=== PATIENT | female | born 1975 | race Caucasian/White ===

== ENCOUNTER 2016-06-17 02:36 | Emergency (ER) | payer OTHER ==
[2016-06-17 02:44] VITALS: TEMP 97.4
--- NOTE | 2016-06-17 03:04 | ED ---
General Adult HPI - General Chief complaint: Upper Respiratory Infection Stated complaint: SOB, cough, nvd, ent Time Seen by Provider: 06/17/16 02:47 Source: patient, family, RN notes reviewed Mode of arrival: ambulatory Limitations: no limitations - History of Present Illness Initial comments: This is a 40-year-old female who presents with cough, congestion, headache, sore throat and nausea/vomiting/diarrhea 5 days. Patient states the nausea/ vomiting has only occurred intermittently throughout the week and mostly in the mornings. Patient states she has diarrhea after meals x3-4days. Patient states she has been feeling warm but has no documented fever. Patient also admits to some drainage from the left eye that started about 3 days ago. Patient denies any foreign body sensation or pain to the left eye. Patient states she did have drainage from the right eye and has now switched to the left eye. Patient denies any recent travel or recent antibiotics. Patient is able to keep fluids down and eating. Patient did not get a flu shot. Patient admits to tobacco use. Patient also complains of otalgia. Patient denies any recent fever, chills, shortness breath, chest pain, abdominal pain, back pain, numbness, tingling, hematuria, or visual changes, or any other complaints. - Related Data Home Medications Medication Instructions Recorded Confirmed Baclofen 10 mg PO TID 06/17/16 06/17/16 Famotidine [Pepcid] 20 mg PO DAILY 06/17/16 06/17/16 Gabapentin [Neurontin] 100 mg PO TID 06/17/16 06/17/16 Hydrocodone/Acetaminophen [[place] 1 tab PO Q6H PRN 06/17/16 06/17/16 10-325] Previous Rx's Medication Instructions Recorded Benzonatate [Tessalon Perles] 100 mg PO TID 7 Days 06/17/16 Erythromycin Ophth Oint [Romycin 1 applic LEFT EYE QID 7 Days 06/17/16 Ophth Oint] Lidocaine Viscous [Xylocaine 1 ml MUCOUS MEM Q3H 3 Days 06/17/16 Viscous 2%] Allergies Allergy/AdvReac Type Severity Reaction Status Date / Time codeine Allergy Unknown Verified 06/17/16 02:44 morphine Allergy Unknown Verified 06/17/16 02:44 Penicillins Allergy Unknown Verified 06/17/16 02:44 Review of Systems ROS Statement: Those systems with pertinent positive or pertinent negative responses have been documented in the HPI. ROS Other: All systems not noted in ROS Statement are negative. Past Medical History Past Medical History: Asthma Additional Past Medical History / Comment(s): headaches; Back pain History of Any Multi-Drug Resistant Organisms: None Reported Past Surgical History: Cholecystectomy, Hysterectomy, Orthopedic Surgery Additional Past Surgical History / Comment(s): shoulder Past Psychological History: No Psychological Hx Reported Smoking Status: Current every day smoker Past Alcohol Use History: None Reported Past Drug Use History: None Reported General Exam - General Exam Comments Initial Comments: General: The patient is awake and alert, in no distress, and does not appear acutely ill. Eye: There is mild conjunctival injection to the left eye, normal conjunctivae on the right side. Mild watery drainage from the left eye. Pupils are equal, round and reactive to light, extra-ocular movements are intact. No nystagmus. No signs of icterus. Tonometry showed normal pressure in the eye at 15 mmHg. Ears: TMs pink and pearly with intact cone of light bilaterally. Normal external ear canals Nose: Nasal turbinates are erythematous and edematous. Mouth and throat: There is erythema of the posterior pharynx. There are moist mucous membranes and no oral lesions. Neck: The neck is supple, there is no tenderness or JVD. Cardiovascular: There is a regular rate and rhythm. No murmur, rub or gallop is appreciated. Respiratory: Lungs are clear to auscultation, respirations are non-labored, breath sounds are equal. No wheezes, stridor, rales, or rhonchi. Gastrointestinal: Soft, non-distended, non-tender abdomen without masses or organomegaly noted. There is no rebound or guarding present. Bowel sounds are unremarkable. Musculoskeletal: Normal ROM, no tenderness. Strength 5/5. Sensation intact. Radial pulses equal bilaterally 2+. Neurological: A&O x 3. CN II-XII intact, There are no obvious motor or sensory deficits. Coordination appears grossly intact. Speech is normal. Skin: Skin is warm and dry and no rashes or lesions are noted. Psychiatric: Cooperative, appropriate mood & affect, normal judgment. Limitations: no limitations Course Vital Signs 06/17/16 02:41 Temperature 97.4 F L Pulse Rate 94 Respiratory 18 Rate Blood Pressure 152/89 O2 Sat by Pulse 96 Oximetry Procedures - Procedures Initial comment: Proparacaine was applied to the patient's eye and fluorescein stain after this. Left eye was viewed under the Wood's lamp and no corneal abrasion was noted. No foreign body is noted with inspection or with eyelid inversion. Medical Decision Making - Medical Decision Making This is a 40-year-old female presents with cough, congestion, headache and sore throat, nausea/vomiting/diarrhea off and on for one week. On physical exam lungs are clear to auscultation bilaterally. Patient is afebrile in the EC. There is some mild erythema to the left eye and nasal turbinates are erythematous and edematous. Tonometry showed normal pressure in the eye at 15 mmHg. Mild erythema of the posterior pharynx. Influenza and strep were done and came back negative. A chest x-ray was done and review showing: No acute cardiopulmonary process. Reportedly Dr. Gonzalez. Proparacaine was applied to the patient's eye and fluorescein stain after this. Left eye was viewed under the Wood's lamp and no corneal abrasion was noted. No foreign body is noted with inspection or with eyelid inversion. Patient was offered Zofran ODT in the EC the patient refused. Patient was given IM Zofran. Patient was having emesis of mucus in the EC. I discussed the results with patient. Discussed the patient will be given eyedrops for conjunctivitis. I discussed that she most likely has a viral bronchitis. Patient will be given a prescription for Tessalon Perles and viscous lidocaine. I discussed the patient to continue to drink plenty of fluids. Discussed that patient should follow up with PCP in one to 2 days or return to the EC for any worsening symptoms or for any further concerns. Patient was receptive to this plan and patient will be discharged home. I discussed this case with attending physician Dr. Castrejon who agrees the plan as stated above. - Lab Data Lab Results 06/17/16 06/17/16 Range/Units 03:00 03:00 Influenza Type A RNA Not Detected (Not Detectd) Influenza Type B (PCR) Not Detected (Not Detectd) Group A Strep Rapid Negative (Negative) Disposition Clinical Impression: Conjunctivitis, Bronchitis, Diarrhea Disposition: HOME SELF-CARE Condition: Good Instructions: Conjunctivitis (ED) Additional Instructions: Please use Tessalon Perles, viscous lidocaine and eye ointment as prescribed. Please be sure to drink plenty of fluids. [id number] decongestants may help. Please follow-up with your primary care provider tomorrow or return to the EC for any worsening symptoms or for any further concerns. Prescriptions: Benzonatate [Tessalon Perles] 100 mg PO TID 7 Days Erythromycin Ophth Oint [Romycin Ophth Oint] 1 applic LEFT EYE QID 7 Days Lidocaine Viscous [Xylocaine Viscous 2%] 1 ml MUCOUS MEM Q3H 3 Days Referrals: Efraín Arroyo DO [Primary Care Provider] - 1-2 days Time of Disposition: 04:15
--- NOTE | 2016-06-17 03:22 | XR ---
EXAMINATION TYPE: XR chest 2V DATE OF EXAM: 06/17/2016 3:12 AM COMPARISON: CT chest 03/15/2014 HISTORY: Chest pain cough shortness of breath nausea vomiting and diarrhea TECHNIQUE: Frontal and lateral views of the chest are obtained. FINDINGS: There is no focal air space opacity, pleural effusion, or pneumothorax seen. Mild chronic lung changes are suggested. Previously seen tiny lung nodules in the CT scan are not demonstrated wel l in the chest radiographs. The cardiac silhouette size is within normal limits. The osseous struc tures are intact. IMPRESSION: No acute cardiopulmonary process.
[2016-06-17] MEDS ORDERED: ONDANSETRON 4 MG/2 ML VIAL IM STA (03:31)
[2016-06-17] MEDS ORDERED: PROPARACAINE 0.5% OPHTH DROPS 15 ML BTL LEFT EYE STA (03:46)
[2016-06-17] MEDS ORDERED: LIDOCAINE VISCOUS 300 MG/15 ML CUP MUCOUS MEM STA (04:14)
[2016-06-17] MEDS: LIDOCAINE VISCOUS 2% 15 ML CUP MUCOUS MEM STA ×2 (04:17→04:28)
[2016-06-17 04:27] VITALS: BP 143/78; PULSE 92; RESP 16
== END 2016-06-17 04:26 | disposition home or self-care (01) ==
LOC: EC 02:36
DX: H10.9 Unspecified conjunctivitis (principal); J40 Bronchitis, not specified as acute or chronic; R19.7 Diarrhea, unspecified; F17.200 Nicotine dependence, unspecified, uncomplicated; Z88.5 Allergy status to narcotic agent; Z88.0 Allergy status to penicillin; Z79.899 Other long term (current) drug therapy
CPT/HCPCS: 87081; 87430; 87502; 71020; 99283; 96372; J2405

== ENCOUNTER 2016-09-28 20:55 | Emergency (ER) | payer OTHER ==
[2016-09-28 21:04] VITALS: BP 134/92; PULSE 106; RESP 18; TEMP 97.5
--- NOTE | 2016-09-28 21:10 | ED ---
Female Urogenital HPI - General Chief complaint: Urogenital Stated complaint: UTI Time Seen by Provider: 09/28/16 21:05 Source: patient, RN notes reviewed Mode of arrival: ambulatory Limitations: no limitations - History of Present Illness Initial comments: 47-year-old female presents to the emergency department with a chief complaint of dysuria. Patient states that she has had increased frequency of urination however she has not had as much urine is normal. Patient states that she is having burning with urination as well as. Patient menstrual history of UTIs and states that this feels much like what she has had in the past. Patient denies any fever chills cough cold runny nose with this. Patient denies any nausea or vomiting. Patient states she was concerned due to the symptoms so she thought that she should be evaluated.Patient denies any recent fever, chills , shortness of breath, chest pain, back pain, abdominal pain, nausea vomiting, numbness or tingling, constipation or diarrhea, headaches or visual changes, or any other current symptoms. - Related Data Home Medications Medication Instructions Recorded Confirmed Baclofen 10 mg PO TID 06/17/16 06/17/16 Famotidine [Pepcid] 20 mg PO DAILY 06/17/16 06/17/16 Gabapentin [Neurontin] 100 mg PO TID 06/17/16 06/17/16 Hydrocodone/Acetaminophen [[place] 1 tab PO Q6H PRN 06/17/16 06/17/16 10-325] Previous Rx's Medication Instructions Recorded Benzonatate [Tessalon Perles] 100 mg PO TID 7 Days 06/17/16 Erythromycin Ophth Oint [Romycin 1 applic LEFT EYE QID 7 Days 06/17/16 Ophth Oint] Lidocaine Viscous 2% [Xylocaine 1 ml MUCOUS MEM Q3H 3 Days 06/17/16 Viscous] Nitrofurantoin Macrocrystal 100 mg PO BID #14 cap 09/28/16 [Macrodantin] Phenazopyridine [Pyridium] 100 mg PO TID #9 tablet 09/28/16 Allergies Allergy/AdvReac Type Severity Reaction Status Date / Time codeine Allergy Unknown Verified 09/28/16 21:02 morphine Allergy Unknown Verified 09/28/16 21:02 Penicillins Allergy Unknown Verified 09/28/16 21:02 Review of Systems ROS Statement: Those systems with pertinent positive or pertinent negative responses have been documented in the HPI. ROS Other: All systems not noted in ROS Statement are negative. Past Medical History Past Medical History: Asthma Additional Past Medical History / Comment(s): headaches; Back pain History of Any Multi-Drug Resistant Organisms: None Reported Past Surgical History: Cholecystectomy, Hysterectomy, Orthopedic Surgery Additional Past Surgical History / Comment(s): shoulder Past Psychological History: No Psychological Hx Reported Smoking Status: Current every day smoker Past Alcohol Use History: None Reported Past Drug Use History: None Reported General Exam Limitations: no limitations General appearance: alert, in no apparent distress Head exam: Present: atraumatic, normocephalic, normal inspection Neck exam: Present: normal inspection Respiratory exam: Present: normal lung sounds bilaterally. Absent: respiratory distress, wheezes, rales, rhonchi, stridor Cardiovascular Exam: Present: regular rate, normal rhythm, normal heart sounds. Absent: systolic murmur, diastolic murmur, rubs, gallop, clicks GI/Abdominal exam: Present: soft, normal bowel sounds. Absent: distended, tenderness, guarding, rebound, rigid Neurological exam: Present: alert, oriented X3 Psychiatric exam: Present: normal affect, normal mood Skin exam: Present: warm, dry, intact, normal color. Absent: rash Course Vital Signs 09/28/16 21:02 Temperature 97.5 F L Pulse Rate 106 H Respiratory 18 Rate Blood Pressure 134/92 O2 Sat by Pulse 99 Oximetry Medical Decision Making - Medical Decision Making 41-year-old female presents emergency Department chief complaint of dysuria. At this time there is suspicion for UTI. This time we will start the patient and asked. We discussed return parameters and follow-up. From patient's questions. She states she understood and she is negative plan. She will be discharged home. - Lab Data Lab Results 09/28/16 Range/Units 21:15 Urine Color Light Red Urine Appearance Turbid H (Clear) Urine pH 6.0 (5.0-8.0) Ur Specific [place] 1.022 (1.001-1.035) Urine Protein 2+ H (Negative) Urine Glucose (UA) Negative (Negative) Urine Ketones Trace H (Negative) Urine Blood Large H (Negative) Urine Nitrite Negative (Negative) Urine Bilirubin Negative (Negative) Urine Urobilinogen 2.0 (<2.0) mg/dL Ur Leukocyte Esterase Large H (Negative) Urine RBC >182 H (0-5) /hpf Urine WBC >182 H (0-5) /hpf Ur Squamous Epith Cells 39 H (0-4) /hpf Amorphous Sediment Rare H (None) /hpf Urine Bacteria Occasional H (None) /hpf Urine Mucus Few H (None) /hpf Disposition Clinical Impression: UTI (urinary tract infection) Disposition: HOME SELF-CARE Condition: Stable Instructions: Urinary Tract Infection in Women (ED) Additional Instructions: Please use medication as discussed. Please follow up with family doctor if symptoms have not improved over the next two days. Please return to the emergency room if your symptoms increase or worsen or for any other concerns. Prescriptions: Nitrofurantoin Macrocrystal [Macrodantin] 100 mg PO BID #14 cap Phenazopyridine [Pyridium] 100 mg PO TID #9 tablet Referrals: Efraín Arroyo DO [Primary Care Provider] - 1-2 days Time of Disposition: 21:48
[2016-09-28 21:43] LABS: Amorphous Sediment,Urine Rare /hpf; Appearance,Urine Turbid (Clear); Bacteria,Urine Occasional /hpf; Bilirubin,Urine Negative (Negative); Glucose,Urine (UA) Negative (Negative); Ketones,Urine Trace (Negative); Leukocyte Esterase,Urine Large (Negative); Mucus,Urine Few /hpf; Nitrite,Urine Negative (Negative); Particle Count 62480; Protein,Urine 2+ (Negative); RBC,Urine >182 /hpf (0-5); Specific Gravity,Urine 1.022 (1.001-1.035); Squamous Epithelial Cell,Urine 39 /hpf (0-4); UA Billing (MACRO vs. MICRO) MICRO; WBC,Urine >182 /hpf (0-5)
[2016-09-28] MEDS ORDERED: NITROFURANTOIN MACROCRYSTAL 50 MG CAP PO STA (21:48)
[2016-09-28] MEDS ORDERED: PHENAZOPYRIDINE 200 MG TAB PO STA (21:48)
== END 2016-09-28 21:58 | disposition home or self-care (01) ==
LOC: EC 20:55
DX: N39.0 Urinary tract infection, site not specified (principal); F17.200 Nicotine dependence, unspecified, uncomplicated; Z79.899 Other long term (current) drug therapy; Z88.5 Allergy status to narcotic agent; Z88.0 Allergy status to penicillin; Z90.49 Acquired absence of other specified parts of digestive tract; Z90.710 Acquired absence of both cervix and uterus
CPT/HCPCS: 81001; 87077; 87086; 87186; 99283

== ENCOUNTER → 2017-03-06 | Outpatient (CLI) | payer OTHER ==
--- NOTE | 2017-03-07 08:26 | MM ---
Reason for exam: screening (asymptomatic). Baseline mammogram. History: Patient is postmenopausal and has history of other cancer at age 27. Physical Findings: Nurse did not find any significant physical abnormalities on exam. MG 3D Screening Mammo W/Cad Bilateral CC and MLO view(s) were taken. There are scattered fibroglandular densities. Nodule in the low left axilla likely axillary lymph node. Small 5mm nodularity central left breast is circumscribed and a benign etiology is suspected. 6 month follow up recommended for these findings. These results were verbally communicated with the patient and result sheet given to the patient on 03/06/17. ASSESSMENT: Probably benign, BI-RAD 3 RECOMMENDATION: Follow-up diagnostic mammogram of the left breast in 6 months.
== END | disposition home or self-care (01) ==
LOC: RADMAMWWP 15:38
PROVIDERS: ATTEND Family Medicine
DX: Z12.31 Encounter for screening mammogram for malignant neoplasm of breast (principal)
CPT/HCPCS: 77063; G0202

== ENCOUNTER → 2017-05-01 | Outpatient (CLI) | payer OTHER ==
--- NOTE | 2017-05-01 16:07 | CT ---
EXAMINATION TYPE: CT chest w con DATE OF EXAM: 05/01/2017 COMPARISON: 03/15/2014 HISTORY: Follow up nodules CT DLP: 810 mGycm. Automated Exposure Control for Dose Reduction was Utilized. TECHNIQUE: CT scan of the thorax is performed following with IV Contrast, patient injected with 100 mL of Omnipaque 300. FINDINGS: LUNGS: The previously seen 4 mm pleural-based pulmonary nodule is present on series 4 image 43 and is stable in comparison to the prior and should be considered benign. Just superior to this there is a 2 mm pleural-based nodule that is also stable and should be considered benign. On series 4 image 34 t here is a 3 mm stable solid pulmonary nodule which should also be considered benign. The 2 mm pleural -based pulmonary nodule on series 4 image 31 is also stable from the prior. The other pleural-based p ulmonary nodule is no longer visualized. Retrospectively a right middle lobe pulmonary nodule on seri es 4 image 28 measuring 4 mm is stable from the prior exam. No new pulmonary nodules are identified. No pulmonary masses. No focal consolidation or pleural effusion. No pneumothorax. The tracheobronchi al tree is patent. MEDIASTINUM: There are no greater than 1 cm hilar or mediastinal lymph nodes. No pericardial effusi on is seen. OTHER: Cholecystectomy clips are noted within the right upper quadrant. Mild multilevel degenerative changes of the thoracic spine are noted. Osseous structures appear intact. IMPRESSION: Multiple subcentimeter bilateral pulmonary nodules are stable dating back to 03/15/2014 a nd should be considered benign. No adenopathy or new pulmonary nodules.
== END | disposition home or self-care (01) ==
LOC: RADCTMAIN 15:15
PROVIDERS: ATTEND Physician Assistant
DX: R91.8 Other nonspecific abnormal finding of lung field (principal)
CPT/HCPCS: 71260; Q9967

== ENCOUNTER 2017-05-03 23:08 | Emergency (ER) | payer OTHER ==
[2017-05-03 23:18] VITALS: BP 152/77; PULSE 85; RESP 18; TEMP 98.1
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
--- NOTE | 2017-05-04 00:05 | CT ---
EXAM: CT Head Without Intravenous Contrast CLINICAL HISTORY: Reason: pain TECHNIQUE: Axial computed tomography images of the head/brain without intravenous contrast. CTDI is 65.30 mGy and DLP is 1035.10 mGy-cm. This CT exam was performed using one or more of the following dose reduction techniques: automated exposure control, adjustment of the mA and/or kV according to patient size, and/or use of iterative reconstruction technique. COMPARISON: 11/04/2013 FINDINGS: Brain: Unremarkable. No hemorrhage. No significant white matter disease. No edema. Ventricles: Unremarkable. No ventriculomegaly. Bones/joints: Unremarkable. No acute fracture. Soft tissues: Unremarkable. Sinuses: There is a retention cyst or polyp noted involving the inferior aspect of the left maxillary sinus. Mastoid air cells: Unremarkable as visualized. No mastoid effusion. IMPRESSION: No acute intracranial process. Left maxillary retention cyst or polyp. EXAM: CT Cervical Spine Without Intravenous Contrast CLINICAL HISTORY: Reason: pain TECHNIQUE: Axial computed tomography images of the cervical spine without intravenous contrast. CTDI is 65.30 mGy and DLP is 1035.10 mGy-cm. This CT exam was performed using one or more of the following dose reduction techniques: automated exposure control, adjustment of the mA and/or kV according to patient size, and/or use of iterative reconstruction technique. Coronal and sagittal reformatted images were created and reviewed. COMPARISON: 11/04/13 FINDINGS: Vertebrae: Unremarkable. No acute fracture. Discs/spinal canal/neural foramina: No acute findings. No spinal canal stenosis. Soft tissues: Unremarkable. Lung apices: Unremarkable as visualized. IMPRESSION: Normal cervical spine CT.
== END 2017-05-04 00:47 | disposition home or self-care (01) ==
LOC: EC 23:08
DX: M54.2 Cervicalgia (principal); R51 Headache; F17.200 Nicotine dependence, unspecified, uncomplicated; Z79.899 Other long term (current) drug therapy; Z88.0 Allergy status to penicillin; Z88.2 Allergy status to sulfonamides; Z88.5 Allergy status to narcotic agent; V43.02XA Car driver injured in collision with other type car in nontraffic accident, initial encounter; Y92.410 Unspecified street and highway as the place of occurrence of the external cause
CPT/HCPCS: 70450; 72125; 99284

== ENCOUNTER 2018-08-24 19:52 | Emergency (ER) | payer OTHER ==
[2018-08-24 20:00] VITALS: RESP 20
[2018-08-24] MEDS ORDERED: DEXAMETHASONE SOD PHOSPHATE 10 MG/ML 1 ML VIAL IM STA (20:38)
[2018-08-24] MEDS ORDERED: KETOROLAC 30 MG/ML 1 ML VIAL IM STA (20:38)
[2018-08-24] MEDS ORDERED: diphenhydrAMINE 50 MG CAP PO STA (20:38)
--- NOTE | 2018-08-24 21:48 | ED ---
General Adult HPI - General Chief complaint: Allergic Reaction Stated complaint: Neck Swelling Time Seen by Provider: 08/24/18 20:23 Source: patient, RN notes reviewed Mode of arrival: EMS Limitations: no limitations - History of Present Illness Initial comments: 43-year-old female presents to the emergency department for a chief complaint of left-sided neck swelling 1 hour. Patient states she was eating not toes and the left lower side of her face and neck started to swell. Patient states this has never happened before. Patient denies any difficulty swallowing or breathing. Patient denies any swelling of the lips or throat. States this is only on the left side. The redness. Denies any fevers.Patient has no other complaints at this time including shortness of breath, chest pain, abdominal pain, nausea or vomiting, headache, or visual changes. - Related Data Home Medications Medication Instructions Recorded Confirmed Baclofen 10 mg PO TID 06/17/16 08/24/18 Hydrocodone/Acetaminophen [Norman 1 tab PO TID PRN 06/17/16 08/24/18 10-325] Gabapentin [Neurontin] 300 mg PO TID PRN 08/24/18 08/24/18 Ibuprofen [Motrin Ib] 400 mg PO Q6H PRN 08/24/18 08/24/18 Allergies Allergy/AdvReac Type Severity Reaction Status Date / Time codeine Allergy Unknown Verified 08/24/18 20:06 morphine Allergy Unknown Verified 08/24/18 20:06 Penicillins Allergy Unknown Verified 08/24/18 20:06 Sulfa (Sulfonamide Allergy Dyspnea Verified 08/24/18 20:06 Antibiotics) Review of Systems ROS Statement: Those systems with pertinent positive or pertinent negative responses have been documented in the HPI. ROS Other: All systems not noted in ROS Statement are negative. Past Medical History Past Medical History: Asthma Additional Past Medical History / Comment(s): headaches; Back pain History of Any Multi-Drug Resistant Organisms: ESBL Date of last positivie culture/infection: 09/28/16, not a CRE CONFIRMED BY [facility] MDRO Source:: ESBL URINE Past Surgical History: Cholecystectomy, Hysterectomy, Orthopedic Surgery Additional Past Surgical History / Comment(s): shoulder Past Psychological History: Anxiety, Bipolar, Depression Smoking Status: Current every day smoker Past Alcohol Use History: Occasional Past Drug Use History: None Reported General Exam Limitations: no limitations General appearance: alert, in no apparent distress Head exam: Present: atraumatic, normocephalic, normal inspection Eye exam: Present: normal appearance, PERRL, EOMI. Absent: scleral icterus, conjunctival injection, periorbital swelling ENT exam: Present: normal exam, normal oropharynx (Oropharynx patent, uvula midline), mucous membranes moist, TM's normal bilaterally, normal external ear exam Neck exam: Present: full ROM (Full range of motion), other (Patient does have some edema noted of the left submandibular area without significant tenderness). Absent: tenderness (No tenderness noted), meningismus, lymphadenopathy Respiratory exam: Present: normal lung sounds bilaterally. Absent: respiratory distress, wheezes, rales, rhonchi, stridor Cardiovascular Exam: Present: regular rate, normal rhythm, normal heart sounds. Absent: systolic murmur, diastolic murmur, rubs, gallop, clicks Neurological exam: Present: alert, oriented X3, CN II-XII intact Psychiatric exam: Present: normal affect, normal mood Course Vital Signs 08/24/18 19:56 Temperature 97.8 F Pulse Rate 83 Respiratory 20 Rate Blood Pressure 129/85 O2 Sat by Pulse 95 Oximetry Medical Decision Making - Medical Decision Making 43 old female with a past medical history of asthma, headaches, back pain presents to the emergency department for left submandibular swelling 1 hour. Patient states this started immediately after eating nachos. Patient denies any swelling of the lips tongue or throat. States she was concerned that there was an ALLERGIC reaction however has never had an ALLERGIC reaction to this before. Patient denies any right-sided neck swelling. On exam patient does have some edema noted of the left submandibular area. No tenderness. No erythema. No edema of the oropharynx or sublingual edema. Patient likely has a blocked salivary duct as this started immediately after eating. The patient was however given medications for ALLERGIC reaction as this is her main concern. An reevaluation patient feeling much better. States that the swelling has gone down considerably which is evident on exam. Patient was educated to eat sour candies but follow-up with primary care. Educated to return here if symptoms do not resolve or worsen. Disposition Clinical Impression: Salivary duct obstruction Disposition: HOME SELF-CARE Condition: Good Instructions (If sedation given, give patient instructions): Parotid Duct Obstruction (ED), Sialoadenitis (ED) Additional Instructions: Please take sour candies to try to increase salivation. Please follow-up with primary care ENT and 1-2 days. If symptoms worsen then you need to return here to the emergency department. Is patient prescribed a controlled substance at d/c from ED?: No Referrals: Briana Rodriguez MD [Primary Care Provider] - 1-2 days Ariel Doan MD [STAFF PHYSICIAN] - 1-2 days Time of Disposition: 21:46
[2018-08-24 22:07] VITALS: BP 119/72; PULSE 62; TEMP 98.2
== END 2018-08-24 22:07 | disposition home or self-care (01) ==
LOC: EC 19:52
DX: K11.8 Other diseases of salivary glands (principal); F17.200 Nicotine dependence, unspecified, uncomplicated; Z79.899 Other long term (current) drug therapy; Z88.0 Allergy status to penicillin; Z88.2 Allergy status to sulfonamides; Z88.5 Allergy status to narcotic agent
CPT/HCPCS: 99283; 96372 ×2; J1100; J1885

== ENCOUNTER → 2019-02-19 | Outpatient (CLI) | payer OTHER ==
--- NOTE | 2019-02-20 11:06 | MR ---
EXAMINATION TYPE: MR angio head wo con DATE OF EXAM: 02/19/2019 8:15 PM COMPARISON: NONE HISTORY: New onset headache/Lightheadedness Three-dimensional [id number] intracranial MRA was performed with multiple intensity projection im ages submitted and source data reviewed at the workstation. The vertebrobasilar system as well as intracranial portions of the internal carotid arteries and thei r major tributaries are patent. I do not see evidence for sizable aneurysm or vascular malformation. IMPRESSION: Normal study.
== END | disposition home or self-care (01) ==
LOC: RADMRIMAIN 19:32
PROVIDERS: ATTEND Family Medicine
DX: R51 Headache (principal); R42 Dizziness and giddiness
CPT/HCPCS: 70544

== ENCOUNTER → 2019-05-12 | Outpatient (CLI) | payer OTHER ==
[2019-05-12 13:39] VITALS: BP 130/85; PULSE 92; RESP 16
--- NOTE | 2019-05-12 14:21 | P.CON ---
Consult Note - . Consult date: 05/12/19 Assessment/Plan:: Pain Management Consultation 43-year-old female who presents as a new patient to the [facility] pain clinic. She was referred to us for evaluation of right-sided occipital neuralgia. This incident occurred 4 months ago, patient does not identify mechanism of injury. She states that it originated with a headache that was bilateral and symmetrical. However, she's been having residual right-sided headaches originating from the occiput and radiating into the temporal and frontal components of the head. She denies any radiation to her either ear. She denies any neck pain, radicular pain into her upper extremities or lower extremities. She has tried migraine medication that she cannot identify, but none were effective. She denies any blurred vision, tinnitus, balance disturbance, antalgic gait, nausea or vomiting in the morning. In addition to above, 13-point review of systems is also negative for chest pain, shortness of breath, changes in vision, changes in hearing, new onset weakness, abdominal pain, diarrhea, extreme fatigue, malaise, fever, skin changes, homicidal or suicidal ideation, or bowel or bladder incontinence. Vital Signs: Reviewed in EMR Gen: WDWN, AAOx3, NAD, obese HEENT: NCAT, EOMI, hearing grossly normal Pulm: resp unlabored Abd: soft, NT, CVS: Regular rate and rhythm ND Neck: supple, trachea midline ROM in flexion cervical spine: Normal ROM in extension cervical spine: Normal Cervical paraspinal muscle tenderness negative Facet loading: Negative bilateral Neuro: 5 out of 5 muscle strength upper and lower extremities, sensation intact bilaterally upper and lower extremities. Assessment: 1. Occipital neuralgia, right Plan: 1. Explanation: Diagnoses, prognoses, and multiple treatment options including but not limited to physical therapy, interventional therapies, adjuvant medical therapies, narcotic medication therapies, and surgery were discussed with the patient and all questions were answered to the patient's satisfaction. 2. Opioid agreement: Not required 3. Counseling: The patient was counseled extensively on SMOKING CESSATION, BODY MASS INDEX, EXERCISE. Specifically, the patient was instructed regarding the importance of smoking cessation, obesity, and exercise in the context of both chronic pain and overall health. 4. Procedures: We'll schedule patient for right side occipital nerve block 5. Consultations: None 6. Investigations: None 7. Medications: None 8. Disposition: Patient will follow up for procedure PQRS measures: 1-Patient's medications are documented in the chart. 2-Tobacco use is positive, counseling refused 3-Patient has not had a pneumococcal vaccine. 4-Advanced care planning discussed, patient unable to give. 5-Opioid contract not signed with the patient. 6-Pain positive, follow-up visit or procedure scheduled 7-Patient's blood pressure measured and documented, and WNL. 8-Patient's weight was measured, and body mass index ABOVE the normal limits, and counseling was done. Patient instructed to follow up with PCP. 9-Patient WAS NOT identified as an unhealthy alcohol user.
== END | disposition home or self-care (01) ==
LOC: PNWHC3 12:57
PROVIDERS: ATTEND Anesthesiology
DX: M54.81 Occipital neuralgia (principal); Z72.0 Tobacco use
CPT/HCPCS: 99211

== ENCOUNTER 2019-05-24 08:08 | Day surgery (SDC) | payer OTHER ==
[2019-05-21 10:36] VITALS: BMI 45.0
[~2019-05-24 08:08] MED LIST: BUPIVACAINE (PF) 0.5% 30 ML VIAL ONE; MIDAZOLAM 2 MG/2 ML VIAL ONE; fentaNYL (PF) 50 MCG/ML 2 ML AMP ONE; methylPREDNISolone ACETATE 40 MG/ML 1 ML VIAL ONE
[2019-05-24 08:35] VITALS: TEMP 97.6
[2019-05-24] MEDS: LACTATED RINGERS 1,000 ML IV SCH ×2 (08:48→09:00)
[2019-05-24] MEDS ORDERED: IV FLUID CONTINUATION 900 ML IV ONE (09:15)
[2019-05-24 09:32] VITALS: RESP 16
[2019-05-24 09:37] VITALS: BP 107/61; PULSE 78
--- NOTE | 2019-05-24 10:26 | P.PCN ---
Date of Procedure: 05/24/19 Procedure(s) Performed: Preoperative diagnoses= 1- Greater occipital neuralgia Postoperative diagnoses= same as preoperative diagnosis. Procedure= Right Greater occipital nerve block Anesthesia= moderate sedation with Versed 2 mg and fentanyl 50 micrograms . Estimated blood loss=minimal. Procedure indication= the patient had a history of severe chronic neck pain ,and headache, diagnosed with occipital neuralgia exam was positive for severe tenderness over the occipital nerve bilaterally, she will be a good candidate occipital nerve block, patient failed conservative management Procedure description= the patient was seen and identified in the preoperative holding area, risks and benefits and alternative of the procedure and possible complications discussed with the patient, and he agreed with the preceding, patient signed the consent, an IV was started, and vital signs were monitored and were stable throughout the procedure, patient was placed in the sitting position or table and the neck area was prepped and draped with a sterile fashion, vital signs were closely monitored during the procedure, 25-gauge needle advanced 1 inch lateral to the occipital protuberance on the right side, at the location of the right occipital nerve , then after negative aspiration for heme and CSF and there was no paresthesia during the injection, 6 ml of Robivacaine 0.5% and 40 mg of Depo-Medrol injected after negative aspiration, the needle removed, Patient tolerated the procedure well without any complication, The patient returned to supine position after the back was cleaned and a Band- Aid applied, the patient transported to recovery room in stable condition and he was monitored for 30 minutes before he was discharged home and then patient was reexamined before going home and patient was discharged in stable condition and patient will follow up with the pain clinic in a few weeks.
== END 2019-05-24 09:53 | disposition home or self-care (01) ==
LOC: ORPAIN 08:08
PROVIDERS: ATTEND Specialist
DX: G89.29 Other chronic pain (principal); M54.81 Occipital neuralgia; Z88.5 Allergy status to narcotic agent; Z88.2 Allergy status to sulfonamides
CPT/HCPCS: 64405; J2250; J1030; J3010

== ENCOUNTER → 2019-06-07 | Day surgery (SDC) | payer OTHER ==
[2019-06-04 09:18] VITALS: BMI 45.7
[~2019-06-07] MED LIST changes: +IV FLUID CONTINUATION 700 ML IV ONE; +LACTATED RINGERS 1,000 ML IV SCH; +LIDOCAINE 1% 20 ML VIAL (10MG/ML) FOR IV START INTRADERMA ONE
[2019-06-07 08:12] VITALS: RESP 18; TEMP 97.3
--- NOTE | 2019-06-07 08:41 | P.PCN ---
Date of Procedure: 06/07/19 Procedure(s) Performed: Preoperative diagnoses= 1- Right Greater occipital neuralgia Postoperative diagnoses= same as preoperative diagnosis. Procedure= Right Greater occipital nerve block. Anesthesia= moderate sedation with Versed 2 mg and fentanyl 50 micrograms . Estimated blood loss=minimal. Procedure indication= the patient had a history of severe chronic neck pain ,and headache, diagnosed with occipital neuralgia exam was positive for severe tenderness over the occipital nerve bilaterally, she will be a good candidate occipital nerve block, patient failed conservative management Procedure description= the patient was seen and identified in the preoperative holding area, risks and benefits and alternative of the procedure and possible complications discussed with the patient, and he agreed with the preceding, patient signed the consent, an IV was started, and vital signs were monitored and were stable throughout the procedure, patient was placed in the sitting position or table and the neck area was prepped and draped with a sterile fashion, vital signs were closely monitored during the procedure, 25-gauge needle advanced 1 inch lateral to the occipital protuberance on the right side, at the location of the right occipital nerve , then after negative aspiration for heme and CSF and there was no paresthesia during the injection, 6 ml of Robivacaine 0.5% and 40 mg of Depo-Medrol injected after negative aspiration, the needle removed, Patient tolerated the procedure well without any complication, The patient returned to supine position after the back was cleaned and a Band- Aid applied, the patient transported to recovery room in stable condition and he was monitored for 30 minutes before he was discharged home and then patient was reexamined before going home and patient was discharged in stable condition and patient will follow up with the pain clinic in a few weeks.
[2019-06-07 08:56] VITALS: PULSE 80
[2019-06-07 09:02] VITALS: BP 112/66
== END ==
LOC: ORPAIN 07:30
PROVIDERS: ATTEND Specialist
DX: G89.29 Other chronic pain (principal); M54.81 Occipital neuralgia; Z88.5 Allergy status to narcotic agent; Z88.2 Allergy status to sulfonamides; Z90.710 Acquired absence of both cervix and uterus
CPT/HCPCS: 64405; J2250; J1030; J3010

== ENCOUNTER → 2019-11-30 | Outpatient (CLI) | payer OTHER ==
--- NOTE | 2019-11-30 18:45 | MR ---
EXAMINATION TYPE: MR brain wo/w con DATE OF EXAM: 11/30/2019 COMPARISON: CT brain 05/03/2017 HISTORY: Migraine, occipital neuralgia right side CONTRAST: Performed utilizing 13.5 mL intravenous Gadavist gadolinium contrast. TECHNIQUE: Multiplanar, multiecho imaging on a 3.0 Agustina magnet is performed through the brain. Stud y is performed within 24 hours of arrival to the hospital. The craniovertebral junction is normal. The pituitary is normal. Optic chiasm is visualized is norm al. Portions of the orbits within the [id number] are normal Diffusion-weighted imaging is performed. No abnormal hyperintensity is present to suggest an acute i ntracranial infarct or acute ischemic change. Signal within the brain appears normal Ventricles and sulci are appropriate for the patient age. No abnormal enhancement is evident. IMPRESSIONS: 1. No acute intracranial abnormality.
== END | disposition home or self-care (01) ==
LOC: RADMRIMAIN 13:07
PROVIDERS: ATTEND Family Medicine
DX: G43.909 Migraine, unspecified, not intractable, without status migrainosus (principal); M54.81 Occipital neuralgia
CPT/HCPCS: 70553; A9585

== ENCOUNTER → 2020-09-13 | Outpatient (CLI) | payer OTHER ==
--- NOTE | 2020-09-13 11:54 | MM ---
Reason for exam: additional evaluation requested from prior study. Last mammogram was performed 3 years and 6 months ago. History: Patient is postmenopausal and has history of other cancer at age 27. Took estrogen for 9 years beginning at age 27. Physical Findings: Nurse did not find any significant physical abnormalities on exam. MG Diagnostic Mammo w CAD SAM Bilateral CC and MLO view(s) were taken. Prior study comparison: March 06, 2017, bilateral MG 3d screening mammo w/cad. There are scattered fibroglandular densities. Bilateral axillary lymph node, benign appearing. Bilateral breast calcifications scattered, benign appearing. These results were verbally communicated with the patient and result sheet given to the patient on 09/13/20. ASSESSMENT: Benign, BI-RAD 2 RECOMMENDATION: Routine screening mammogram of both breasts in 1 year. Clinical follow up for whole right breast pain.
== END | disposition home or self-care (01) ==
LOC: RADMAMWWP 08:16
PROVIDERS: ATTEND Family Medicine
DX: R92.1 Mammographic calcification found on diagnostic imaging of breast (principal); Z78.0 Asymptomatic menopausal state
CPT/HCPCS: 77066

== ENCOUNTER → 2020-09-18 | Outpatient (CLI) | payer OTHER | LOC: CPPFTMAIN 06:54 | PROVIDERS: ATTEND Family Medicine | DX: Z09 Encounter for follow-up examination after completed treatment for conditions other than malignant neoplasm (principal); Z87.09 Personal history of other diseases of the respiratory system; Z88.5 Allergy status to narcotic agent; Z88.2 Allergy status to sulfonamides; F17.200 Nicotine dependence, unspecified, uncomplicated | CPT/HCPCS: 94060; 94726; 94729 ==

== ENCOUNTER → 2020-09-20 | Outpatient (CLI) | payer OTHER ==
--- NOTE | 2020-09-20 15:48 | CT ---
EXAMINATION TYPE: CT abdomen pelvis w con DATE OF EXAM: 09/20/2020 COMPARISON: 02/11/2014 HISTORY: 45-year-old female R19.01, abdominal mass RUQ TECHNIQUE: Contiguous axial scanning of the abdomen and pelvis following administration of 100 ml Iso berlin 300 IV contrast. Delayed images through the kidneys and coronal/sagittal reconstructions perform ed. CT DLP: 2318.3 mGycm Automated exposure control for dose reduction was used. FINDINGS: Heart normal size without pericardial effusion. Lung bases clear without pleural effusion. The liver is enlarged measuring 22.4 cm. No focal liver lesion. Portal venous system is patent. No bi liary ductal dilatation. Cholecystectomy clips. The adrenal glands and pancreas appear within normal limits. Spleen mildly enlarged at 14.0 cm. Nonobstructive 6 mm right renal calculus. A couple nonobstructive calculi in the left kidney measurin g up to 4 mm. However, there is a 7 mm calcification dependent within the left renal pelvis. Symmetri c uptake and excretion of contrast from both kidneys at this time. No dilated small bowel, free fluid, or free air. No mesenteric or retroperitoneal lymphadenopathy. Oral contrast has progressed to the ascending colon. No significant stool burden. No pericolonic infl ammatory change. Bladder is nondistended. Uterus surgically absent. Pelvic phlebolith. No abnormal fluid collection in the pelvis. Right-sided inguinal lymph nodes are asymmetrically larger measuring up to 1.8 cm short axis. These are mildly enlarged, refer to coronal image 50 and 53. Bones: Mild degenerative change of the hips. Facet arthropathy lower lumbar spine. IMPRESSION: 1. HEPATOSPLENOMEGALY (LIVER 22.4 CM AND SPLEEN 14.0 CM). 2. NONOBSTRUCTIVE BILATERAL RENAL CALCULI MEASURING UP TO 6 MM. HOWEVER, THERE IS A 7 MM CALCULUS LOC ATED WITHIN THE LEFT RENAL COLLECTING SYSTEM WELL. THIS COULD POTENTIALLY PASS INTO THE URETER. 3. A COUPLE MILDLY ENLARGED RIGHT INGUINAL LYMPH NODES MEASURING UP TO 1.8 CM SHORT AXIS. FINDINGS MA Y BE REACTIVE. CLINICAL FOLLOW-UP RECOMMENDED TO ENSURE STABILITY/RESOLUTION IN ORDER TO EXCLUDE THE POSSIBILITY OF METASTATIC DISEASE. ULTRASOUND FOLLOW-UP CAN BE CONSIDERED.
== END ==
LOC: RADCTMAIN 13:00
PROVIDERS: ATTEND Family Medicine
DX: R16.2 Hepatomegaly with splenomegaly, not elsewhere classified (principal); R59.0 Localized enlarged lymph nodes; N20.0 Calculus of kidney
CPT/HCPCS: 74177; Q9967

== ENCOUNTER → 2020-10-19 | Outpatient (CLI) | payer OTHER ==
[2020-10-20 00:48] LABS: Gliadin AB IgA, Deaminated NEGATIVE (NEGATIVE); Gliadin AB IgA, Unit 1.4 U/mL; Gliadin AB IgG, Deaminated NEGATIVE (NEGATIVE)
== END | disposition home or self-care (01) ==
LOC: LABWHC1 14:14
PROVIDERS: ATTEND Nurse Practitioner
DX: K52.9 Noninfective gastroenteritis and colitis, unspecified (principal)
CPT/HCPCS: 36415; 83516

== ENCOUNTER 2020-11-09 10:18 | Day surgery (SDC) | payer OTHER ==
[~2020-11-09 10:18] MED LIST changes: -BUPIVACAINE (PF) 0.5% 30 ML VIAL ONE; -IV FLUID CONTINUATION 700 ML IV ONE; -LIDOCAINE 1% 20 ML VIAL (10MG/ML) FOR IV START INTRADERMA ONE; -MIDAZOLAM 2 MG/2 ML VIAL ONE; -fentaNYL (PF) 50 MCG/ML 2 ML AMP ONE; -methylPREDNISolone ACETATE 40 MG/ML 1 ML VIAL ONE
[2020-11-09 10:45] VITALS: TEMP 97.4
[2020-11-09] MEDS ORDERED: LIDOCAINE 1% (10MG/ML) FOR IV START INTRADERMA ONE (10:45)
[2020-11-09] MEDS ORDERED: PROPOFOL 10 MG/ML 20 ML VIAL IV ONE (11:07)
[2020-11-09 11:38] VITALS: RESP 16
--- NOTE | 2020-11-09 11:38 | P.PCN ---
Date of Procedure: 11/09/20 Description of Procedure: BRIEF HISTORY: Patient is a 45-year-old female presenting for outpatient colonoscopy for evaluation of diarrhea and change in bowel habits. She reports a remote history of colonoscopy which was having constipation at that time. She is now reporting one year of frequent loose bowel movements. PROCEDURE PERFORMED: Colonoscopy with biopsy and polypectomy. PREOPERATIVE DIAGNOSIS: Diarrhea, change in bowel habits, last colonoscopy performed remotely. ESTIMATED BLOOD LOSS: Minimal. IV sedation per Anesthesia. PROCEDURE: After informed consent was obtained, the patient, was brought into the endoscopy unit. IV sedation was administered by Anesthesia under continuous monitoring. Digital rectal examination was normal. Initially the Olympus CF-190 flexible video colonoscope was then inserted in the rectum, gradually advanced into the cecum without any difficulty. Careful examination was performed as the scope was gradually being withdrawn. Ileocecal valve and the appendiceal orifice were visualized and appeared normal. Prep was excellent. Mucosa of the cecum, ascending colon, transverse colon, descending colon, sigmoid colon, and rectum appeared normal, with biopsies of the right and left colon taken. Normal- appearing terminal ileum biopsied. Diminutive 2 mm cecal polyp removed with cold forcep polypectomy. Retroflexion was performed in the rectum and no lesions were seen, low-grade internal hemorrhoids noted. The patient tolerated the procedure well. IMPRESSION: Diminutive cecal polyp removed with cold forcep polypectomy. Otherwise, normal-appearing colon from rectum to cecum with normal-appearing terminal ileum and random biopsies taken of the terminal ileum, right and left colon. Internal hemorrhoids. RECOMMENDATIONS: Findings of this examination were discussed with the patient.. Okay to resume diet. Okay to resume medications. Await pathology from biopsies and polypectomy. Recommend repeat colonoscopy in 7 years for colon polyp any pathology from polypectomy. Otherwise continue current medical management at this time.
[2020-11-09 11:56] VITALS: BP 115/75; PULSE 66
== END 2020-11-09 12:05 | disposition home or self-care (01) ==
LOC: ORWHC2ENDO 10:18
PROVIDERS: ATTEND Internal Medicine
DX: D12.0 Benign neoplasm of cecum (principal); K64.8 Other hemorrhoids; Z90.49 Acquired absence of other specified parts of digestive tract; Z90.710 Acquired absence of both cervix and uterus; Z98.890 Other specified postprocedural states; G43.919 Migraine, unspecified, intractable, without status migrainosus; F17.200 Nicotine dependence, unspecified, uncomplicated; Z79.891 Long term (current) use of opiate analgesic; Z79.1 Long term (current) use of non-steroidal anti-inflammatories (NSAID); Z79.899 Other long term (current) drug therapy; Z88.5 Allergy status to narcotic agent; Z88.2 Allergy status to sulfonamides
CPT/HCPCS: 88305; 45380; J2704

== ENCOUNTER → 2020-12-21 | Day surgery (SDC) | payer OTHER ==
[2020-12-19 10:06] VITALS: BMI 46.2
[~2020-12-21] MED LIST changes: +DEXAMETHASONE SOD PHOSPHATE 4 MG/ML 1 ML VIAL IVP ONE; +IOPAMIDOL-370 50ML BTL IRRIGATION ONE; +LACTATED RINGERS 1,000 ML IV ONE; -LACTATED RINGERS 1,000 ML IV SCH; +LIDOCAINE 1% (10MG/ML) FOR IV START INTRADERMA ONE; +LIDOCAINE 1% INJ 10MG/ML (20 ML MDV) ONE; +MIDAZOLAM 2 MG/2 ML VIAL ONE; +ONDANSETRON 4 MG/2 ML VIAL ONE; +PHENYLEPHRINE-0.9% NACL SYG 1,000 MCG/10 ML SYRINGE ONE; +PROPOFOL 10 MG/ML 20 ML VIAL IV ONE; +SUCCINYLCHOLINE CHLORIDE 100 MG/5 ML SYR IV ONE; +ceFAZolin 3 GM in SODIUM CHLORIDE 0.9% 100 ML IVPB PRN; +fentaNYL (PF) 50 MCG/ML 2 ML AMP IVP ONE; +fentaNYL (PF) 50 MCG/ML 2 ML AMP ONE
--- NOTE | 2020-12-21 11:27 | XR ---
EXAMINATION TYPE: XR KUB DATE OF EXAM: 12/21/2020 Comparison: Correlation CT 09/20/2020 Clinical History: 45-year-old female kidney stones, DOS 12-21-20 Findings: Bowel content obscures right renal shadow. Suggestion of a 9 mm calcification left mid abdomen probab ly representing the calculus in the collecting system. Vague densities on the supine image of the upper abdomen projecting in the region of the right kidney not confirmed to represent multiple calculi on the prior CT. Small pelvic phleboliths. Nonobstructive bowel gas pattern. Moderate stool. Impression: 9 mm left mid abdominal calcification may correspond to the stone seen in the left renal collecting s ystem on prior 09/20/2020 CT.
--- NOTE | 2020-12-21 11:37 | P.HPIHPCON ---
History of Present Illness H&P Date: 12/21/20 Chief Complaint: Bilateral kidney stones This is a 45-year-old female with history of a 5 mm right-sided proximal stone, and a 9 mm left sided renal pelvis stone. She symptomatically from her stone. Discussed with her the option of doing a bilateral ureteroscopy, discussed with her the risks which includes but not limited to bleeding, infection, injury to the ureter. Discussed risk from anesthesia. She understood all the risk and agreed to proceed with bilateral ureteroscopy, with holmium laser lithotripsy, stone basketing and stent insertion Consent for Procedure: I have explained the operation/procedure to the patient, including the risks, benefits, side effects, alternative therapies (including not receiving the proposed treatment or service), the likelihood of the patient achieving his/her goals, and potential recuperation problems for the procedure/sedation/analgesia, as well as any blood products, if indicated. I also explained to the patient the risks, benefits and side effects of the alternatives, as well as the risks rel ated to not receiving the proposed procedure, care, treatment, or services. Past Medical History Past Medical History: Asthma, Musculoskeletal Disorder Additional Past Medical History / Comment(s): bilateral kidney stones,HAD COVID IN OCTOBER 2019. MIGRAINES. Back pain, freq UTI's. History of Any Multi-Drug Resistant Organisms: ESBL Date of last positivie culture/infection: 09/28/16, not a CRE CONFIRMED BY [facility] MDRO Source:: ESBL URINE Past Surgical History: Cholecystectomy, Hysterectomy, Orthopedic Surgery Additional Past Surgical History / Comment(s): Rt Shoulder surgery. Pain proc,colonoscopy Past Anesthesia/Blood Transfusion Reactions: Previous Problems w/ Anesthesia Additional Past Anesthesia/Blood Transfusion Reaction / Comment(s): BECAME VIOLENT, HITTING AT STAFF-yrs ago Smoking Status: Current every day smoker - Past Family History Mother Family Medical History: Cancer Additional Family Medical History / Comment(s): Ovarian Cancer. Medications and Allergies Home Medications Medication Instructions Recorded Confirmed Type Hydrocodone/Acetaminophen [Hammond 1 tab PO TID 06/17/16 12/19/20 History 10-325] Ibuprofen [Motrin Ib] 400 mg PO Q6H PRN 08/24/18 12/19/20 History Aspirin/Acetaminophen/Caffeine 2 each PO BID PRN 05/10/19 12/19/20 History [Sandeep's Ex-Str Powder Packet] Acetaminophen [Tylenol] 325 mg PO Q4H PRN 05/24/19 12/19/20 History Albuterol Sulfate [Proair Hfa] 1 puff INHALATION DIRECTED PRN 11/08/20 12/19/20 History Allergies Allergy/AdvReac Type Severity Reaction Status Date / Time codeine Allergy Dyspnea,abdominal Verified 12/19/20 09:40 cramping morphine Allergy Dyspnea,abdominal Verified 12/19/20 09:40 cramping Sulfa (Sulfonamide Allergy "everything Verified 12/19/20 09:40 Antibiotics) spins and almost passed out" Surgical - Exam - General well developed, well nourished, no distress - Eyes normal ocular movement, no icteric - ENT no hearing loss, no congestion - Respiratory normal respiratory effort, clear to auscultation - Psychiatric oriented to time, oriented to person, oriented to place, speech is normal, memory intact Assessment and Plan Assessment: 45-year-old female with history of a right ureteral stone, left renal stone OR for bilateral ureteroscopy, with holmium laser lithotripsy, stone basketing and stent insertion
[2020-12-21 11:59] LABS: Glucose,Whole Blood 124 mg/dL (75-99)
--- NOTE | 2020-12-21 14:30 | P.OP ---
Date of Procedure: 12/21/20 Preoperative Diagnosis: Right ureteral, left renal stone Postoperative Diagnosis: Same Procedure(s) Performed: Cystoscopy, right reterograde pyelogram, bilateral ureteroscopy, laser lithotripsy, stone basketing, and stent insertion Implants: 4.8-Lithuanian by 24 centimeters stent bilaterally Anesthesia: FABIOA Surgeon: Justo Warren Estimated Blood Loss (ml): 5 Pathology: other (bilateral kidney stones) Condition: stable Disposition: PACU Indications for Procedure: This is a 45-year-old female with history of a 5 mm right-sided proximal stone, and a 9 mm left sided renal pelvis stone. She symptomatically from her stone. Discussed with her the option of doing a bilateral ureteroscopy, discussed with her the risks which includes but not limited to bleeding, infection, injury to the ureter. Discussed risk from anesthesia. She understood all the risk and agreed to proceed with bilateral ureteroscopy, with holmium laser lithotripsy, stone basketing and stent insertion Operative Findings: Right UPJ stone, left renal pelvis stone Description of Procedure: patient was brought to the operating room, general anesthesia was induced. She was prepped and draped in sterile fashion and placed in dorsal lithotomy position. Cystoscopy fitted 21-Lithuanian sheath was inserted per urethra, cystoscopy was performed which showed no abnormality within the bladder. Attention was then carried to the right ureteral orifice was intubated with an open-ended catheter, retrograde pyelogram was performed which showed a filling defect along the proximal ureter, with mild hydronephrosis. Next a sensor wire was advanced through the catheter and into the renal pelvis, Under fluoroscopy 1113 Lithuanian access sheath was passed into the proximal ureter. Next ureteroscope was inserted through the access sheath, stone was visualized in the proximal ureter and was lasered using the holmium laser, sizable fragments were removed using stone basket. Repeat renoscopy showed no sizable stone or injury to the kidney. Pullback ureteroscopy was performed which showed no injury to the ureter or any ureteral stone. Attention was then carried to the left ureter, which was intubated with a sensor wire. Next a 1113 Lithuanian access sheath was passed under fluoroscopy into the proximal ureter. The flexibile ureteroscope was advanced through the access sheath, renoscopy was performed showed large stone within the renal pelvis. Using the holmium laser the stone was fragmented into small fragments, the fragments were removed using stone basket. Repeat renoscopy was performed which showed no injury to the kidney or any sizable fragments. Pullback ureteroscopy was performed whic showed no injury to the ureter or any ureteral fragments. Next a ureteral stent was passed over the wire on the left side, the proximal curl was visualized on fluoroscopy and distal curl was visualized using the cystoscope. Attention was then carried to the right side which was intubated with a with a sensor wire. A ureteral stent was passed over the wire, the proximal curl was visualized on fluoroscopy and distal curl was visualized using the cystoscope. The bladder was emptied at the end of the case. Patient tolerated the procedure well was taken to PACU in stable condition
[2020-12-21 14:43] VITALS: TEMP 97
--- NOTE | 2020-12-21 14:56 | FL ---
Fluoroscopy HISTORY: Lithotripsy 6 seconds fluoroscopy time supplied to the referring clinician. 1 intraoperative C-arm images docume nt the procedure. See dictated report from urology.
[2020-12-21 15:13] VITALS: RESP 20
[2020-12-21 15:30] VITALS: BP 143/92; PULSE 68
== END | disposition home or self-care (01) ==
LOC: OR 10:43
PROVIDERS: ATTEND Urology
DX: N20.0 Calculus of kidney (principal); M54.9 Dorsalgia, unspecified; G43.909 Migraine, unspecified, not intractable, without status migrainosus; F41.8 Other specified anxiety disorders; F31.9 Bipolar disorder, unspecified; J45.909 Unspecified asthma, uncomplicated; F17.200 Nicotine dependence, unspecified, uncomplicated; R73.03 Prediabetes; Z87.440 Personal history of urinary (tract) infections; Z87.442 Personal history of urinary calculi; Z86.16 Personal history of COVID-19
CPT/HCPCS: 52356; 82365; 74420; 74018; C2625; C1758; C1769; J2250; J1100; J0690; J2405; J2001; J3010; J2370; J0330; J2704; Q9967

== ENCOUNTER → 2022-04-19 | Outpatient (CLI) | payer OTHER ==
--- NOTE | 2022-04-20 06:59 | PE ---
EXAMINATION TYPE: PET CT fusion skull to thigh DATE OF EXAM: 04/19/2022 COMPARISON: Most recent CT abdomen and pelvis September 20, 2020 HISTORY: Lymphadenopathy. Enlarged lymph nodes in the coronary along with enlarged liver and spleen p er patient. Right lower quadrant pain per patient. TECHNIQUE: Following the intravenous administration of 11.07 mCi of F-18 FDG, whole body images are performed from the skull base to the midthigh. Images are reviewed on the computer in the coronal, a xial, and sagittal planes. Reconstructed rotating images are created on independent workstation and reviewed on the computer. A localization and attenuation correction CT is performed in conjunction with the PET scan. Blood glucose level equals 100. SCAN: Initial Scan FINDINGS: SKULL BASE AND NECK: Symmetric uptake in the oral cavity. No suspicious abnormal hypermetabolic upta ke. CHEST, MEDIASTINUM, AND HILAR REGION: No suspicious hypermetabolic uptake. No concerning axillary volodymyr nopathy is seen. ABDOMEN AND PELVIS: Liver appears upper limits of normal in size. Spleen normal in size. No suspiciou s hypermetabolic uptake. Normal excretion. Nonspecific bowel uptake prominent in the transverse colon . Prominent but subcentimeter lymph nodes in the groin. No abnormal hypermetabolic masses or lymph no terrie. OSSEOUS STRUCTURES: No areas of abnormal hypermetabolic uptake. OTHER CT: There is mucous retention cyst or polyp in the inferior left maxillary sinus. Cholecystectomy clips are seen. There is 1.2 cm calculus in the left renal pelvis axial image 158. Th ere is smaller 2 mm midpole calculus axial image 156. Uterus is surgically absent. IMPRESSION: No hypermetabolic adenopathy to suggest neoplasm. Liver and spleen felt normal in size. N o suspicious focal hypermetabolic uptake in liver or spleen. Note is made of 1.2 cm calculus in the l eft renal pelvis. Advise urology follow-up.
== END | disposition home or self-care (01) ==
LOC: RADPETMAIN 15:02
PROVIDERS: ATTEND Internal Medicine Hematology & Oncology
DX: N20.0 Calculus of kidney (principal); R59.0 Localized enlarged lymph nodes
CPT/HCPCS: 78815; A9552

== ENCOUNTER → 2023-04-05 | Outpatient (CLI) | payer OTHER ==
--- NOTE | 2023-04-05 15:31 | MR ---
EXAMINATION TYPE: MR brain and iac wo/w con DATE OF EXAM: 04/05/2023 COMPARISON: 11/30/2019 HISTORY: Driss hearing loss TECHNIQUE: Multiplanar, multisequence images of the brain and brainstem is performed without and with IV contras t, utilizing 12.5 mL intravenous Gadobutrol . High-resolution images the posterior fossa were obtaine d. FINDINGS On the T1-weighted sagittal images, the midline structures including the craniovertebral junction rel ationships appear normal. The ventricles, basal cisterns and sulci over the convexities are mildly prominent consistent with mi ld atrophy appropriate for the patient's age. There is no mass effect or shift of the midline structu res. No abnormal signal intensity is seen throughout the brain parenchyma. There is no pathological enhanc ement throughout the brain parenchyma Based on diffusion-weighted imaging, there is no diffusion restriction or acute ischemic event. There is no evidence of intracranial hemorrhage. The posterior fossa including the brainstem, fourth ventricle and cerebellar pontine angles appear no rmal. There is no mass or pathological enhancement of the internal auditory canals are contents. The intraorbital contents appear normal and symmetric. There are marked chronic inflammatory changes in the left maxillary sinus which is nearly completely opacified. The mastoid air cells are well aerated. IMPRESSION: 1. Mild age-appropriate atrophy. 2. No mass, pathological enhancement, acute ischemic event or shift of midline structures. 3. No abnormality of the posterior fossa, cerebellar pontine angles or internal auditory canals. 4. Marked chronic inflammatory changes of the left maxillary sinus.
== END | disposition home or self-care (01) ==
LOC: RADMRIMAIN 13:06
PROVIDERS: ATTEND Otolaryngology
DX: J34.89 Other specified disorders of nose and nasal sinuses (principal); G31.1 Senile degeneration of brain, not elsewhere classified; H91.93 Unspecified hearing loss, bilateral; R42 Dizziness and giddiness
CPT/HCPCS: 70553; A9585

== ENCOUNTER → 2023-05-08 | Outpatient (CLI) | payer OTHER ==
[2023-05-08 14:43] LABS: BUN/Creat Ratio 16.38 Ratio (12.00-20.00); Blood Urea Nitrogen 13.1 mg/dL (9.0-27.0); Calcium 9.6 mg/dL (8.7-10.3); Carbon Dioxide 25.2 mmol/L (21.6-31.8); Chloride 106 mmol/L (96-109); Glucose 96 mg/dL (70-110); Potassium 4.4 mmol/L (3.5-5.5); Sodium 141 mmol/L (135-145)
[2023-05-08 16:34] LABS: Basophils # (A) 0.04 X 10*3/uL (0.00-0.10); Basophils % (A) 0.6 %; Eosinophils # (A) 0.14 X 10*3/uL (0.04-0.35); Eosinophils % (A) 2.2 %; HCT 43.6 % (37.2-46.3); HGB 13.9 g/dL (12.0-15.0); Lymphocytes # (A) 2.91 X 10*3/uL (0.90-5.00); Lymphocytes % (A) 44.8 %; MCH 28.1 pg (27.0-32.0); MCHC 31.9 g/dL (32.0-37.0); MCV 88.1 FL (80.0-97.0); Mean Platelet Volume 11.4 FL (9.5-12.2); Monocytes # (A) 0.32 X 10*3/uL (0.20-1.00); Monocytes % (A) 4.9 %; NRBC Per 100 WBC 0 X 10*3/uL (0.00-0.01); Neutrophils # (A) 3.07 X 10*3/uL (1.80-7.70); Neutrophils % (A) 47.2 %; Platelet Count 221 X 10*3/uL (140-440); RBC 4.95 X 10*6/uL (4.10-5.20); RDW 13.1 % (11.5-14.5)
[2023-05-08 18:13] LABS: Appearance,Urine Cloudy (Clear); Bilirubin,Urine Negative (Negative); Blood,Urine Moderate (Negative); Color,Urine Yellow (Yellow); Ketones,Urine Negative (Negative); Nitrite,Urine Negative (Negative); PH, Urine 5.5; Specific Gravity,Urine 1.011 (1.001-1.030); Urobilinogen,Urine 0.2 E.U./DL
[2023-05-08 18:26] LABS: Bacteria,Urine 1+ (None Seen)
== END | disposition home or self-care (01) ==
LOC: LABPAT 10:43
PROVIDERS: ATTEND Urology
DX: Z01.812 Encounter for preprocedural laboratory examination (principal); N21.0 Calculus in bladder; R31.0 Gross hematuria
CPT/HCPCS: 80048; 81001; 85025; 87086

== ENCOUNTER 2023-05-13 10:13 | Day surgery (SDC) | payer OTHER ==
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
[~2023-05-13 10:13] MED LIST changes: +DEXAMETHASONE SOD PHOSPHATE 4 MG/ML 1 ML VIAL IV ONE; -DEXAMETHASONE SOD PHOSPHATE 4 MG/ML 1 ML VIAL IVP ONE; +GENTAMICIN 400 MG in SODIUM CHLORIDE 0.9% 100 ML IVPB PRN; -IOPAMIDOL-370 50ML BTL IRRIGATION ONE; -LACTATED RINGERS 1,000 ML IV ONE; +LACTATED RINGERS 1,000 ML IV SCH; -LIDOCAINE 1% (10MG/ML) FOR IV START INTRADERMA ONE; -LIDOCAINE 1% INJ 10MG/ML (20 ML MDV) ONE; -MIDAZOLAM 2 MG/2 ML VIAL ONE; +ONDANSETRON 4 MG/2 ML VIAL IVP ONE; -ONDANSETRON 4 MG/2 ML VIAL ONE; -PHENYLEPHRINE-0.9% NACL SYG 1,000 MCG/10 ML SYRINGE ONE; -PROPOFOL 10 MG/ML 20 ML VIAL IV ONE; -SUCCINYLCHOLINE CHLORIDE 100 MG/5 ML SYR IV ONE; -ceFAZolin 3 GM in SODIUM CHLORIDE 0.9% 100 ML IVPB PRN; +fentaNYL (PF) 50 MCG/ML 2 ML AMP IV PRN; -fentaNYL (PF) 50 MCG/ML 2 ML AMP IVP ONE; -fentaNYL (PF) 50 MCG/ML 2 ML AMP ONE
--- NOTE | 2023-05-13 10:36 | XR ---
EXAMINATION TYPE: XR KUB DATE OF EXAM: 05/13/2023 10:30 AM CLINICAL INDICATION:Female, 47 years old with history of N20.0 renal stone; [facility] COMPARISON: 01/20/2023 TECHNIQUE: One radiographic view of the abdomen was obtained. FINDINGS: The bowel gas pattern is nonspecific without dilated loops of small or large bowel. There i s no evidence for organomegaly or pneumoperitoneum. The osseous structures are intact. Fecal materia l and gas are demonstrated throughout the colon and rectum. Multilevel degeneration changes througho ut spine. Bilateral renal calculi measuring up to 18 x 10 mm on the left near the renal sinus and multiple dens ities in the right measuring up to 6 mm. Surgical clips in right upper quadrant. IMPRESSION: Bilateral renal calculi.
[2023-05-13 10:54] LABS: Glucose,Whole Blood 100 mg/dL (70-110)
[2023-05-13] MEDS ORDERED: ONDANSETRON 4 MG/2 ML VIAL IVP ONE (10:59)
[2023-05-13] MEDS ORDERED: DEXAMETHASONE SOD PHOSPHATE 4 MG/ML 1 ML VIAL IVP ONE (10:59)
[2023-05-13] MEDS ORDERED: fentaNYL (PF) 50 MCG/1 ML VIAL IVP ONE (11:02)
[2023-05-13] MEDS ORDERED: PROPOFOL 10 MG/ML 20 ML VIAL IV ONE (11:42)
[2023-05-13] MEDS ORDERED: PHENYLEPHRINE-0.9% NACL SYG 1,000 MCG/10 ML SYRINGE ONE (11:42)
[2023-05-13] MEDS ORDERED: ROCURONIUM 10 MG/ML (5 ML VIAL) IV ONE (11:42)
[2023-05-13] MEDS ORDERED: KETOROLAC 15 MG/ML 1 ML VIAL ONE (11:42)
[2023-05-13] MEDS ORDERED: fentaNYL (PF) 50 MCG/ML 2 ML AMP ONE (11:42)
[2023-05-13] MEDS ORDERED: LIDOCAINE 1% INJ 10MG/ML (20 ML MDV) ONE (11:42)
[2023-05-13] MEDS ORDERED: SUCCINYLCHOLINE CHLORIDE 200 MG/10 ML VIAL IV ONE (11:42)
--- NOTE | 2023-05-13 13:11 | P.OP ---
Date of Procedure: 05/13/23 Preoperative Diagnosis: Bilateral renal stones Postoperative Diagnosis: same Procedure(s) Performed: Cystoscopy, bilateral ureteroscopy, holmium laser lithotripsy, stent insertion, left-sided stone basketing Implants: 6-Indian by 24 cm stent in the bilateral ureters Anesthesia: BEVERLY Surgeon: Justo Warren Estimated Blood Loss (ml): 5 Pathology: other (left renal stone) Condition: stable Disposition: PACU Indications for Procedure: This is a 47 yo female with hx of 1.2 cm left sided renal pelvis stone. She is symptomatic from her stone. Option of left sided URS vs ESWL was discussed in details. On the morning of surgery she is also been having right-sided flank pain, KUB did show evidence of a 5 mm right-sided renal pelvis/midole stone. Discussed with her option of doing a bilateral ureteroscopy with holmium laser to address both her first Risk and benefit of each approach was discussed. She agreed to proceed with bilateral URS with holmium laser, stone basketting and stent. Aware of risk which include but not limited to bleeding, infection and injury to the ureter Operative Findings: Large stone in the left renal pelvis, a small stone in the right midpole Description of Procedure: Patient brought to the operating room, general anesthesia was induced. She was prepped and draped in sterile fashion and placed in dorsal lithotomy position. Cystoscopy fitted with a 21-Indian sheath was inserted per urethra, cystoscopy was performed which showed no abnormalities within the bladder. Attention was then carried to the left ureteral orifice which was intubated with a sensor wir e. Next under fluoroscopy 1113 Indian access sheath was passed over the wire and into the proximal ureter. The flexible ureteroscope was inserted through the access sheath, renoscopy was performed showed a large stone in the renal pelvis. Using the holmium laser the stone was dusted, sizable stone fragments were removed using the stone basket. Repeat renoscopy showed no sizable stone or injury to the kidney. On fluoroscopy there is no radiopaque densities. A pullback ureteroscopy was performed which showed no injury to the ureter or any ureteral stones, as the ureteroscope was withdrawn a sensor wire was advanced through. Next a ureteral stent was passed over the wire, the proximal curl was visualized on fluoroscopy and the distal curl was visualized using the cystoscope. At this time attention was carried to the right side which was itubated with a sensor wire. Next under fluoroscopy 1113 Indian access sheath was passed over the wire into the proximal ureter. The flexible ureteroscope was inserted through the access sheath, renoscopy was performed which showed a small stone in the midpole. Using the holmium laser the stone was dusted, repeat renoscopy showed no sizable fragments or injury to the kidney. Pullback ureteroscopy was performed which showed no injury to the kidney or any ureteral stones, as the ureteroscope was withdrawn, a sensor wire was advanced through. Next a ureteral stent was passed over the wire, the proximal curl was visualized on fluoroscopy and the distal curl was visualized using cystoscope. The bladder was emptied at the end of the case. Patient tolerated procedure well taken to recovery in stable condition
[2023-05-13 13:25] VITALS: TEMP 97
[2023-05-13 13:48] VITALS: RESP 16
--- NOTE | 2023-05-13 14:01 | FL ---
EXAMINATION TYPE: FL guidance operating room Intraoperative/procedural fluoroscopic services were pro vided. Total fluoroscopy time is 33.9 seconds with a total of 1 submitted images to PACS. Please see the operative/procedural note for further details. DAP: [id number] mGym2
[2023-05-13 14:11] VITALS: BP 126/88; PULSE 69
== END 2023-05-13 14:23 | disposition home or self-care (01) ==
LOC: OR 10:13
PROVIDERS: ATTEND Urology
DX: N20.0 Calculus of kidney (principal); J45.909 Unspecified asthma, uncomplicated; E11.9 Type 2 diabetes mellitus without complications; F31.9 Bipolar disorder, unspecified; F17.200 Nicotine dependence, unspecified, uncomplicated; G43.909 Migraine, unspecified, not intractable, without status migrainosus; M79.9 Soft tissue disorder, unspecified; Z90.49 Acquired absence of other specified parts of digestive tract; Z90.710 Acquired absence of both cervix and uterus; Z98.890 Other specified postprocedural states; Z80.41 Family history of malignant neoplasm of ovary; Z79.51 Long term (current) use of inhaled steroids; Z79.85 Long-term (current) use of injectable non-insulin antidiabetic drugs; Z79.899 Other long term (current) drug therapy; Z87.442 Personal history of urinary calculi; Z88.2 Allergy status to sulfonamides; Z88.5 Allergy status to narcotic agent
CPT/HCPCS: 82365; 74018; 52356; C2625; C1894; C1769; J0330; J1100; J2405; J2001; J3010 ×2; J1580; J1885; J2704; J2371

== ENCOUNTER → 2023-06-02 | Outpatient (CLI) | payer BC ==
--- NOTE | 2023-06-02 14:22 | XR ---
EXAMINATION TYPE: XR lumbosacral spine min 4V DATE OF EXAM: 06/02/2023 1:34 PM CLINICAL INDICATION:Female, 47 years old with history of M62.89 Muscle stiffness M51.9 Lumbar disc di sease; H COMPARISON: 01/20/2023 TECHNIQUE: XR lumbosacral spine min 4V - Frontal, lateral , bilateral oblique and coned in L5-S1 late ral views of the spine. FINDINGS: No evidence of any acute osseous pathology. No evidence of loss of vertebral body height i s seen. There is normal alignment of the lumbar vertebral bodies. Mild scattered disc space narrowing . Multilevel marginal osteophyte formation throughout the visualized spine. There is facet joint arth ropathy throughout the spine. Scattered at least mild neural foraminal stenosis. Right upper quadrant cholecystectomy clips. IMPRESSION: 1. No acute fracture. 2. Mild to moderate multilevel disc degeneration worse at L5-S1.
--- NOTE | 2023-06-02 14:28 | XR ---
EXAMINATION TYPE: XR cervical spine comp DATE OF EXAM: 06/02/2023 1:34 PM CLINICAL INDICATION:Female, 47 years old with history of M62.89 Muscle stiffness M51.9 Lumbar disc di sease; [facility] COMPARISON: None TECHNIQUE: The cervical spine was imaged in frontal, lateral, odontoid and bilateral oblique. FINDINGS: The osseous structures show normal alignment without evidence of an acute fracture. There are osteoph ytes noted throughout the cervical spine on the anterior and lateral aspects of the vertebral bodies. The intervertebral disk spaces are narrowed at multiple levels. Pedicles are intact. Soft tissues a re within normal limits. The odontoid appears intact. IMPRESSION: 1. No fracture or dislocation. 2. Mild degenerative disc disease changes of the cervical spine.
--- NOTE | 2023-06-02 14:30 | XR ---
EXAMINATION TYPE: XR shoulder complete BILAT DATE OF EXAM: 06/02/2023 1:34 PM CLINICAL INDICATION:Female, 47 years old with history of M62.89 Muscle stiffness M51.9 Lumbar disc di sease; COMPARISON: 05/07/2013. TECHNIQUE: XR shoulder complete BILAT; examined in AP, internally rotated and scapular Y projections. FINDINGS: No evidence of acute osseous pathology, joint dislocation, or soft tissue swelling. The remaining po rtions of the visualized chest are unremarkable. Rotator cuff anchor in the right shoulder. IMPRESSION: No acute osseous pathology.
== END | disposition home or self-care (01) ==
LOC: RADXRMAIN 13:08
PROVIDERS: ATTEND Family Medicine
DX: M51.37 Other intervertebral disc degeneration, lumbosacral region (principal); M50.30 Other cervical disc degeneration, unspecified cervical region; M62.89 Other specified disorders of muscle; M51.9 Unspecified thoracic, thoracolumbar and lumbosacral intervertebral disc disorder
CPT/HCPCS: 72050; 72110

== ENCOUNTER → 2024-04-19 | Outpatient (CLI) | payer BC, OTHER ==
[2024-04-19 16:10] VITALS: BP 119/87; PULSE 79; RESP 18; TEMP 97.6
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
== END ==
LOC: 3 N SLEEP 15:20
PROVIDERS: ATTEND Internal Medicine
DX: G47.33 Obstructive sleep apnea (adult) (pediatric) (principal); E66.9 Obesity, unspecified; E11.9 Type 2 diabetes mellitus without complications; K21.9 Gastro-esophageal reflux disease without esophagitis; E78.5 Hyperlipidemia, unspecified; F17.200 Nicotine dependence, unspecified, uncomplicated; Z90.710 Acquired absence of both cervix and uterus; Z90.49 Acquired absence of other specified parts of digestive tract; Z98.890 Other specified postprocedural states; Z68.41 Body mass index [BMI] 40.0-44.9, adult; Z88.5 Allergy status to narcotic agent; Z88.2 Allergy status to sulfonamides; Z79.85 Long-term (current) use of injectable non-insulin antidiabetic drugs
CPT/HCPCS: 99211

== ENCOUNTER → 2024-05-14 | Outpatient (CLI) | payer OTHER ==
--- NOTE | 2024-05-20 12:14 | P.PCN ---
Description of Procedure: CLINICAL: A home sleep apnea test has been done for confirmation of possible obstructive sleep apnea-hypopnea syndrome. DESCRIPTION OF PROCEDURE: RESULTS: Recording time was 7 hours 38 minutes. Evaluation time was 7 hours 22 minutes. Evaluation time is sufficient for making conclusion about results of the test. Raw data of sleep recording has been reviewed and is adequate. Respiratory channel showed 3 apneas and 76 hypopneas. Apnea-hypopnea index was 10.7 per hour. Pulse rate in the range between minimum 42, maximum 96, average 74 by computer calculation. Lowest desaturation was 83%. IMPRESSION: 1. Obstructive Sleep Apnea Hypopnea Syndrome. Please see other impressions from consultation. PLAN: 1. I will see patient for follow-up visit to explain results of the test and recommendations. 2. Sleep hygiene with regular time in bed for at least 8 hours. 3. Watching and losing weight. 4. No driving if feeling any sleepiness. Thank you very much for allowing me to participate in the management of your patient. Sincerely, Lonnie Jesus MD, PhD, FAASM Diplomat of [employer] Sleep [employer] of [employer] [facility] [place] cc: Briana Rodriguez MD
== END ==
LOC: 3 N SLEEP 13:00
PROVIDERS: ATTEND Internal Medicine
DX: G47.33 Obstructive sleep apnea (adult) (pediatric) (principal); F17.210 Nicotine dependence, cigarettes, uncomplicated; Z88.5 Allergy status to narcotic agent; Z88.2 Allergy status to sulfonamides